=== PATIENT | female | born 1950 | race Native Hawaiian/Other Pacific Islander ===

== ENCOUNTER 2020-08-23 22:45 | Emergency (ER) | payer OTHER ==
[~2020-08-23] VITALS: Ht 165.1 cm; Wt 62.1 kg
[2020-08-23 22:45] VITALS: BP 152/67; TEMP 97.6
[~2020-08-23 22:45] MED LIST: ALPR0.2566 PO; BASAGLAR K100 UNIT/M SC; CHOL100034 PO; CLOP75TA2 PO; CYAN10009 IM; DIVA250T PO; DIVA250T2 PO; DULO30CA PO; DULOXETINE HCL30 MG PO; FEMARA2.5 MG PO; FLUTMIS6 INH; GABA300C2 PO; JANUVIA100 MG PO; LEVO0.0218 PO; LEVO0.0723 PO; OMEPRAZOLE40 MG PO; OXYC5TAB53 PO; POTASSIUM CHLO20 ME1 PO; TIZA4TAB5 PO; TRICOR48 MG PO; WELLBUTRIN150 MG PO
[2020-08-24 00:45] LABS: PLATELET COUNT 170 K/uL (152-353)
[2020-08-24] MEDS ORDERED: ALBUTEROL0.63 MG/3 INH (01:59)
[2020-08-24] MEDS ORDERED: COLACE CLEAR50 MG PO (02:00)
[2020-08-24] MEDS ORDERED: DIVALPROEX SODIUM PO (02:05)
[2020-08-24] MEDS ORDERED: DULOXETINE HCL30 MG PO (02:09)
[2020-08-24] MEDS ORDERED: FEOSOL PO (02:16)
[2020-08-24] MEDS ORDERED: DAILY MULTI PO (02:20)
[2020-08-24] MEDS ORDERED: PANTOPRAZOLE 40MG TA PO (02:23)
[2020-08-24] MEDS ORDERED: TYLENOL325 MG PO (02:28)
[2020-08-24] MEDS ORDERED: ALPR0.2566 PO (02:29)
[2020-08-30] MEDS ORDERED: CYAN10009 SC (09:05)
[2020-08-30] MEDS ORDERED: MAGN400T4 PO (09:06)
[2020-08-30] MEDS ORDERED: OLAN2.5T2 PO (09:06)
[2020-08-30] MEDS ORDERED: NICOTINE T14 MG/241 TD (09:06)
[2020-08-30] MEDS ORDERED: DIVA250T PO (09:08)
[2020-08-30] MEDS ORDERED: ESCI10TA PO (09:08)
[2020-08-30] MEDS ORDERED: DIVALPROEX500 MG PO (09:08)
[2020-08-30] MEDS ORDERED: CHOL100034 PO (09:08)
[2020-08-30] MEDS ORDERED: LEVO0.0529 PO (09:09)
== END 2020-08-24 00:59 | disposition still patient (30) ==
LOC: ED 23:03
PROVIDERS: Emergency Medicine Emergency Medical Services
DX: R46.89 Other symptoms and signs involving appearance and behavior (principal); F39 Unspecified mood [affective] disorder; Z11.59 Encounter for screening for other viral diseases; Z04.6 Encounter for general psychiatric examination, requested by authority
CPT/HCPCS: 36415; 80053; 85027; 87635; 93005; 99283; U0003